=== PATIENT | female | born 1970 | race Caucasian/White ===

== ENCOUNTER 2017-09-28 18:17 | Emergency (ER) | payer MEDICAID ==
[2017-09-28 18:28] VITALS: BP 110/68; TEMP 97.7; O2SAT 99
[2017-09-28 18:33] VITALS: PULSE 74; RESP 18
== END 2017-09-28 18:42 | disposition left against medical advice (07) ==
LOC: C.ER 18:17
DX: Z02.89 Encounter for other administrative examinations (principal); R10.13 Epigastric pain